=== PATIENT | male | born 1990 | race Two or more races ===

== ENCOUNTER 2023-02-11 11:30 | Outpatient (RCR) | payer OTHER, SELFPAY | END 2023-02-11 11:57 | disposition home or self-care (01) | LOC: HO.OT 11:30 | PROVIDERS: PCP Internal Medicine; Visit Provider Physician Assistant Surgical | DX: Z98.890 Other specified postprocedural states (principal) | CPT/HCPCS: 29130; 97035; 97110; 97140; 97166; 97530; 97760 ==

== ENCOUNTER 2023-04-13 14:02 | Outpatient (AMB) | payer OTHER, SELFPAY ==
--- NOTE | 2023-04-13 14:08 | A.OFFPC_ITS ---
Vital Signs 04/13/23 14:09 Height 5 ft 5 in Weight 117 lb BMI 19.5 BP 110/70 Blood Pressure Location Lt brachial Position Sitting Intake Visit Reasons: Annual Exam Intake Note: Patient here for an annual physical exam Protection Manager Required: No Accompanied by: Mother Allergies No Known Allergies Allergy (Verified 04/13/23 14:44) Medication List - Last Reconciled 04/13/23 by Cecilia Smalls MD buspirone 10 mg PO BID methylphenidate HCl 5 mg PO BID trazodone 50 mg PO BEDTIME Tobacco use date assessed: 04/13/23 Dental Screening Dental Screen Date: 04/13/23 Did you have a dental visit in the last 12 months?: Yes Did you have a dental problem in the last 6 months where you did not have access to dental care?: No Was dental information given to patient?: Patient has dentist HPI HPI Comments History of Present Illness Details This is a 32-year-old male that comes for his physical exam accompanied by his mother. No acute complaints. Has some moderate recurrent major depression follow by Psychiatry. [facility] Medical History (Updated 04/13/23 @ 14:50 by Cecilia Smalls MD) MEHDI (generalized anxiety disorder) Moderate recurrent major depression ADD (attention deficit disorder) Family History Father CVD (cardiovascular disease) Mother No problems noted. Maternal Grandmother Cancer Social History (Updated 04/13/23 @ 14:51 by Cecilia Smalls MD) Housing: Apartment Alcohol intake: current Alcohol intake frequency: holidays/special occasions only Alcohol type: wine Patient Tobacco Use Status: Never used Tobacco e-Cigarette/Vaping Use: Never Used Second Hand Smoke Exposure: No service: No Current occupational status: unemployed Cognitive needs: No Hearing needs: No Vision needs: Yes (Glasses.) Questionnaire PHQ-9 Over the last 2 weeks, how often have you been bothered by any of the following problems? 1. Little interest or pleasure in doing things: not at all 2. Feeling down, depressed, or hopeless: several days 3. Trouble falling or staying asleep, or sleeping too much: not at all 4. Feeling tired or having little energy: not at all 5. Poor appetite or overeating: nearly every day 6. Feeling bad about yourself - or that you are a failure or have let yourself or your family down: not at all 7. Trouble concentrating on things, such as reading the newspaper or watching television: not at all 8. Moving or speaking so slowly that other people could have noticed. Or the opposite - being so fidgety or restless that you have been moving around a lot more than usual: not at all 9. Thoughts that you would be better off or of hurting yourself in some way: not at all Total score: 4 Depression Screening Interpretation: Positive Depression Screening Follow-up: Community Mental Health Worker F/U Depression Screening Done: Yes 70243 - PHQ-9 Billing: Yes Source: Developed by Drs. Evans Smith, Traci Grissom, Irwin Carey and colleagues, with an educational yuriy from [employer]. Thrive Questionnaire Date Thrive assessed: 04/13/23 I am a: Patient What is your living situation today?: I have a steady place to live Within the past 12 months, did the food you bought not last and you didn't have the money to get more?: Never true Within the past 12 months, did you worry whether your food would run out before you got money to buy more?: Never true Do you have trouble paying for medicines?: No Do you have trouble getting transportation to medical appointments?: No Do you have trouble paying your heating and electricity bill?: No Do you have trouble taking care of your child, family member or friend?: No Do you have trouble with day-to-day activities such as bathing, preparing meals, shopping, managing finances, etc.?: No Are you currently unemployed and looking for a job?: No Are you interested in more education?: No Please select the resources that you would like help with: None Currently or been in a relationship where the following occur: no concerns reported AUDIT C Alcohol Use Questionnaire (AUDIT-C) 1. How often do you have a drink containing alcohol?: Never Total Score: 0 MEHDI-7 AMB Questionnaire MEHDI-7 Date MEHDI - 7 assessed: 04/13/23 Feeling nervous, anxious, or on edge: 0 = Not at all Not being able to stop or control worryin = Not at all Worrying too much about different things: 0 = Not at all Trouble relaxin = Not at all Being so restless that it is hard to sit still: 0 = Not at all Becoming easily annoyed or irritable: 0 = Not at all Feeling afraid as if something awful might happen: 0 = Not at all Total MEHDI-7 score (0-4 normal; 5-9 mild; 10-14 moderate; 15-21 severe): 0 Source: Developed by Drs. Evans Smith, Traci Grissom, Irwin Carey and colleagues, with an educational yuriy from [employer]. MEHDI-7 Assessment Billing MEHDI-7 Assessment Tool: MEHDI-7 Assessment 23229 Review of Systems Const All systems reviewed & are unremarkable except as noted in HPI and below Eyes Reports no additional complaints, Denies change in vision and Denies other visual disturbances Card Denies chest pain at rest, Denies chest pain with activity, Denies edema, Denies irregular heart rhythm, Denies claudication, Denies dyspnea, Denies dyspnea on exertion, Denies orthopnea, Denies paroxysmal nocturnal dyspnea and Denies slow heart rate Resp Denies cough, Denies dyspnea and Denies dyspnea on exertion GI Denies abdominal pain, Denies change in bowel habits, Denies excessive flatus, Denies nausea and Denies vomiting Denies urinary hesitancy, Denies urinary incontinence and Denies urinary urgency Musc Denies abnormal gait, Denies atrophy, Denies deformity and Denies limited range of motion Skin/Breast Denies bleeding lesions, Denies changing lesions and Denies rash Neuro Denies abnormal gait and Denies lack of coordination Physical exam (Primary Care) Vital Signs: Last Vital Signs BP 110/70 04/13/23 14:09 BMI result Body Mass Index 19.5 Tobacco/Smoking Status: Tobacco use Status Tobacco use date assessed 04/13/23 04/13/23 14:14 Patient Tobacco Use Status Never used Tobacco 04/13/23 14:51 e-Cigarette/Vaping Use Never Used 04/13/23 14:51 PHQ-9: PHQ-9 Score PHQ-9: Total score 4 04/13/23 14:49 Depression Screening Interpretation: Positive Depression Screening Follow-up: Community Mental Health Worker F/U Thrive Assessment: Date of Thrive Assessment Date Thrive assessed 04/13/23 04/13/23 14:14 Currently or been in a relationship where the following occur: no concerns reported Const Orientation/consciousness: patient oriented x3 HENMT Head: Yes normal to inspection, Yes normocephalic and Yes atraumatic Ears: external ears normal Eyes General: appearance normal, both eyes and all related structures Eyelids: Yes eyelids normal Conjunctivae: conjunctivae normal Neck Neck: Yes normal visual inspection and Yes supple Resp Effort & Inspection: normal respiratory effort Auscultation: clear to auscultation bilaterally Cardio Jugular venous distension: no JVD Rate: regular rate Rhythm: regular rhythm Heart sounds: S1 normal heart sound present and S2 normal heart sound present GI Inspection: Yes normal to inspection Palpation (GI): Soft to palpation and nontender Auscultation: normal bowel sounds Skin General skin exam: no rashes or lesions noted Neuro General: patient oriented x3 and no focal motor deficits Extrem General: Yes full ROM Psych Appearance: grossly normal Office Procedures Flu Questionnaire Does the patient have a severe egg allergy?: No Immunizations flu vacc [id number] 6mos up(PF) 60 mcg(15 mcgx4)/0.5 mL IM syringe Performing Provider: Cecilia Smalls MD Performing Location: [facility] Documented (not given) by: MANI Hoskins on 04/13/23 14:14 Reason Not Given: Patient Refused Assessment and Plan Assessment & Plan (1) Encounter for physical examination: Code(s): Z00.00 - Encounter for general adult medical examination without abnormal findings Plan: Repeat in a year (2) Moderate recurrent major depression: Code(s): F33.1 - Major depressive disorder, recurrent, moderate Plan: Continue trazodone. Follow-up with psychiatry. Orders: Orders Influenza [id number] Immunization Today Z23 - Encounter for immunization Coding Level of Care Code Est Pt Prev Care 18-39y(68654) Diagnoses Encounter for physical examination Z00.00 Moderate recurrent major depression F33.1 Additional Codes MEHDI-7 Assessment Billing - MEHDI-7 Assessment Tool: MEHDI-7 Assessment 10586 ([id number]) Time Spent (min) 30
[2023-04-13 14:09] VITALS: BP 110/70; BMI 19.5
== END 2023-04-13 14:56 | disposition home or self-care (01) ==
LOC: HO.HMGH 14:02
PROVIDERS: PCP Internal Medicine; Visit Provider Internal Medicine
DX: Z00.00 Encounter for general adult medical examination without abnormal findings (principal); F33.1 Major depressive disorder, recurrent, moderate
CPT/HCPCS: 99395

== ENCOUNTER 2023-09-30 10:00 | Outpatient (RCR) | payer OTHER, SELFPAY | END 2023-12-16 13:49 | disposition home or self-care (01) | LOC: HO.OT 10:00 | PROVIDERS: PCP Internal Medicine; Visit Provider Physician Assistant Surgical | DX: Z98.890 Other specified postprocedural states (principal) | CPT/HCPCS: 97110; 97140; 97166; 97760 ==

== ENCOUNTER 2024-04-18 10:04 | Outpatient (AMB) | payer OTHER, SELFPAY ==
--- NOTE | 2024-04-18 10:08 | MHC.PC.OV ---
Vital Signs 04/18/24 10:09 Height 5 ft 5 in Weight 118 lb BMI 19.6 BP 112/70 Blood Pressure Location Lt brachial Position Sitting Intake Visit Reasons: annual Intake Note: Patient here for an Annual Physical Exam Program Support Assistant Required: No Accompanied by: Mother Allergies No Known Allergies Allergy (Verified 04/18/24 10:26) Medication List - Last Reconciled 04/18/24 by Cecilia Smalls MD buspirone 10 mg PO BID methylphenidate HCl 5 mg PO BID trazodone 50 mg PO BEDTIME Tobacco use date assessed: 04/18/24 Dental Screening Dental Screen Date: 04/18/24 Did you have a dental visit in the last 12 months?: Yes Did you have a dental problem in the last 6 months where you did not have access to dental care?: No Was dental information given to patient?: Patient has dentist HPI HPI Comments History of Present Illness Details This is a 33-year-old male that comes for his physical exam accompanied by his mother. Has moderate major depression follow by Psychiatry. No chest pain or shortness on breath. Complains of onychomycosis and I will start him on terbinafine. He is aware labs were order and had to be done before starting terbinafine to check his liver enzymes. [facility] Medical History (Updated 04/18/24 @ 10:44 by Cecilia Smalls MD) MEHDI (generalized anxiety disorder) Moderate recurrent major depression ADD (attention deficit disorder) Surgical History (Updated 04/18/24 @ 10:32 by Cecilia Smalls MD) Fracture of left leg Facial fracture Family History Father CVD (cardiovascular disease) Mother No problems noted. Maternal Grandmother Cancer Social History Housing: Apartment Alcohol intake: current Alcohol intake frequency: holidays/special occasions only Alcohol type: wine Patient Tobacco Use Status: Never used Tobacco e-Cigarette/Vaping Use: Never Used Second Hand Smoke Exposure: No service: No Current occupational status: unemployed Cognitive needs: No Hearing needs: No Vision needs: Yes (Glasses.) Questionnaire PHQ-9 Over the last 2 weeks, how often have you been bothered by any of the following problems? 1. Little interest or pleasure in doing things: not at all 2. Feeling down, depressed, or hopeless: not at all 3. Trouble falling or staying asleep, or sleeping too much: not at all 4. Feeling tired or having little energy: nearly every day 5. Poor appetite or overeating: not at all 6. Feeling bad about yourself - or that you are a failure or have let yourself or your family down: not at all 7. Trouble concentrating on things, such as reading the newspaper or watching television: not at all 8. Moving or speaking so slowly that other people could have noticed. Or the opposite - being so fidgety or restless that you have been moving around a lot more than usual: not at all 9. Thoughts that you would be better off or of hurting yourself in some way: not at all Total score: 3 Depression Screening Interpretation: Positive Depression Screening Follow-up: Existing condition and Follow-up Visit Requested Depression Screening Done: Yes 59368 - PHQ-9 Billing: Yes Source: Developed by Drs. Evans Smith, Traci Grissom, Irwin Carey and colleagues, with an educational yuriy from [employer]. Thrive Questionnaire Date Thrive assessed: 04/18/24 I am a: Patient What is your living situation today?: I have a steady place to live Within the past 12 months, did the food you bought not last and you didn't have the money to get more?: Never true Within the past 12 months, did you worry whether your food would run out before you got money to buy more?: Never true Do you have trouble paying for medicines?: No Do you have trouble getting transportation to medical appointments?: No Do you have trouble paying your heating and electricity bill?: No Do you have trouble taking care of your child, family member or friend?: No Do you have trouble with day-to-day activities such as bathing, preparing meals, shopping, managing finances, etc.?: No Are you currently unemployed and looking for a job?: No Are you interested in more education?: No Please select the resources that you would like help with: None Currently or been in a relationship where the following occur: No concerns reported THRIVE Score: 0 AUDIT C Alcohol Use Questionnaire (AUDIT-C) 1. How often do you have a drink containing alcohol?: Never Total Score: 0 Score Reviewed/Action Taken: No MEHDI-7 AMB Questionnaire MEHDI-7 Date MEHDI - 7 assessed: 04/18/24 Feeling nervous, anxious, or on edge: 0 = Not at all Not being able to stop or control worryin = Not at all Worrying too much about different things: 0 = Not at all Trouble relaxin = Not at all Being so restless that it is hard to sit still: 0 = Not at all Becoming easily annoyed or irritable: 0 = Not at all Feeling afraid as if something awful might happen: 0 = Not at all Total MEHDI-7 score (0-4 normal; 5-9 mild; 10-14 moderate; 15-21 severe): 0 Source: Developed by Drs. Evans Smith, Traci Grissom, Irwin Carey and colleagues, with an educational yuriy from [employer]. MEHDI-7 Assessment Billing MEHDI-7 Assessment Tool: MEHDI-7 Assessment 12377 Review of Systems Const All systems reviewed & are unremarkable except as noted in HPI and below Card Denies chest pain at rest, Denies chest pain with activity, Denies edema, Denies irregular heart rhythm, Denies claudication, Denies dyspnea, Denies dyspnea on exertion, Denies orthopnea, Denies paroxysmal nocturnal dyspnea and Denies slow heart rate Resp Denies cough, Denies dyspnea and Denies dyspnea on exertion GI Denies abdominal pain, Denies change in bowel habits, Denies excessive flatus, Denies nausea and Denies vomiting Denies urinary hesitancy, Denies urinary incontinence and Denies urinary urgency Musc Denies atrophy, Denies deformity and Denies limited range of motion Skin/Breast Denies bleeding lesions, Denies changing lesions and Denies rash Physical exam (Primary Care) Vital Signs: Last Vital Signs BP 112/70 04/18/24 10:09 BMI result Body Mass Index 19.6 Tobacco/Smoking Status: Tobacco use Status Tobacco use date assessed 04/18/24 04/18/24 10:14 Patient Tobacco Use Status Never used Tobacco 04/18/24 10:14 e-Cigarette/Vaping Use Never Used 04/18/24 10:14 PHQ-9: PHQ-9 Score PHQ-9: Total score 3 04/18/24 10:48 Depression Screening Interpretation: Positive Depression Screening Follow-up: Existing condition and Follow-up Visit Requested Thrive Assessment: Date of Thrive Assessment Date Thrive assessed 04/18/24 04/18/24 10:14 Currently or been in a relationship where the following occur: No concerns reported [facility] Head: Yes normal to inspection, Yes normocephalic and Yes atraumatic Ears: external ears normal Eyes General: appearance normal, both eyes and all related structures Eyelids: Yes eyelids normal Conjunctivae: conjunctivae normal Neck Neck: Yes normal visual inspection and Yes supple Resp Effort & Inspection: normal respiratory effort Auscultation: clear to auscultation bilaterally Cardio Jugular venous distension: no JVD Rate: regular rate Rhythm: regular rhythm Heart sounds: S1 normal heart sound present and S2 normal heart sound present GI Inspection: Yes normal to inspection Palpation (GI): Soft to palpation and nontender Auscultation: normal bowel sounds Skin General skin exam: no rashes or lesions noted Neuro General: no focal motor deficits Extrem General: Yes full ROM Psych Appearance: grossly normal Office Procedures Flu Questionnaire Does the patient have a severe egg allergy?: No Does the patient have severe life threatening allergies?: No Does the patient have a fever or illness today?: No Has the patient ever had Guillain-Webster Syndrome?: No Has the patient ever had any past reaction to a flu shot?: No Immunizations Fluarix Triv [id number] (PF) 45 mcg (15 mcg x 3)/0.5 mL IM syringe Performing Provider: Cecilia Smalls MD [facility] Administered by: MANI Hoskins on 04/18/24 10:48 Dose Route Admin Location Dispensed Lot Number Expiration Date NDC Assistant Hairstylist 0.5 mL IM Right Deltoid 0.5 mL [id number] 01/08/25 [id number] [employer] VIS Given Date VIS Provided VIS Publication Date 04/18/24 Single Vaccine 21 Eligibility Eligibility Date Funding Source Not [facility] Eligible 04/18/24 Private Coding Level of Care Code Est Pt Level 3 (37976) Est Pt Prev Care 18-39y(56851) Diagnoses Encounter for physical examination Z00.00 Moderate recurrent major depression F33.1 Onychomycosis B35.1 Additional Codes MEHDI-7 Assessment Billing - MEHDI-7 Assessment Tool: MEHDI-7 Assessment 39644 ([id number]) Time Spent (min) 33 Assessment & Plan Assessment & Plan (1) Encounter for physical examination: Code(s): Z00.00 - Encounter for general adult medical examination without abnormal findings Category: Medical Plan: Repeat in a year. (2) Moderate recurrent major depression: Code(s): F33.1 - Major depressive disorder, recurrent, moderate Category: Medical Plan: Continue trazodone. Follow-up with psychiatry. (3) Onychomycosis: Code(s): B35.1 - Tinea unguium Category: Medical Plan: Start terbinafine. Orders: Orders Lipid Panel Today E78.5 - Hyperlipidemia, unspecified, Z00.00 - Encounter for general adult medical examination without abnormal findings Comprehensive [place]. Panel Fast Today Z00.00 - Encounter for general adult medical examination without abnormal findings Influenza [id number] Immunization Today Z23 - Encounter for immunization Medications: New terbinafine HCl 250 mg PO DAILY 90 tabs 0RF 90 days B35.1 - Tinea unguium
[2024-04-18 10:09] VITALS: BP 112/70; BMI 19.6
== END 2024-04-18 10:49 | disposition home or self-care (01) ==
PROVIDERS: PCP Internal Medicine; Visit Provider Internal Medicine
DX: Z00.00 Encounter for general adult medical examination without abnormal findings (principal); F33.1 Major depressive disorder, recurrent, moderate; B35.1 Tinea unguium; Z23 Encounter for immunization

== ENCOUNTER → 2024-04-18 10:04 | Outpatient (BNVA) | payer OTHER, SELFPAY | PROVIDERS: PCP Internal Medicine; Visit Provider Internal Medicine | DX: Z00.01 Encounter for general adult medical examination with abnormal findings (principal); Z23 Encounter for immunization; F33.1 Major depressive disorder, recurrent, moderate; B35.1 Tinea unguium; F41.1 Generalized anxiety disorder | CPT/HCPCS: 90471; 90656; 96127; 99212; 99395 ==

== ENCOUNTER 2024-04-24 11:01 | Outpatient (REF) | payer OTHER, SELFPAY ==
[2024-04-24 12:13] LABS: Alanine Aminotransferase 26 U/L (0-40); Albumin Level 4.6 g/dL (3.5-5.0); Alkaline Phosphatase 61 U/L (39-117); Aspartate Amino Transferase 31 U/L (5-37); Bilirubin Total 0.4 mg/dL (0.0-1.0); Blood Urea Nitrogen 8 mg/dL (9-16); Calcium 9.9 mg/dL (8.4-10.2); Chloride 106 mmol/L (96-108); Cholesterol 173 mg/dL (<200); Estimated Glomerular Filt Rate > 60; Glucose Fasting 87 mg/dL (60-99); HDL Cholesterol 59 mg/dL (>40); LDL Cholesterol Calculated 102 mg/dL (<100); Sodium 144 mmol/L (135-145); Total Protein 7.2 g/dL (6.5-8.0); Triglycerides 62 mg/dL (<150)
[2024-04-24 12:28] LABS: Anion Gap 13 (12-20); Carbon Dioxide 29 mmol/L (22-29)
== END 2024-04-24 11:02 | disposition home or self-care (01) ==
LOC: HO.LAB 11:01
PROVIDERS: PCP Internal Medicine; Visit Provider Internal Medicine
DX: Z00.00 Encounter for general adult medical examination without abnormal findings (principal); E78.5 Hyperlipidemia, unspecified
CPT/HCPCS: 36415; 80053; 80061

== ENCOUNTER 2025-04-24 12:34 | Outpatient (AMB) | payer OTHER, SELFPAY ==
--- NOTE | 2025-04-24 12:37 | MHC.PC.OV ---
Vital Signs 04/24/25 12:38 Height 5 ft 5 in Weight 118 lb BMI 19.6 BP 110/78 Blood Pressure Location Lt brachial Position Sitting Pulse 50 Pulse Source Pulse Oximeter Pulse Oximetry (%) 98 Oxygen Delivery Method Room Air Intake Visit Reasons: annual exam Svp [employer] Development Required: No Accompanied by: Self / Same As Patient Allergies No Known Allergies Allergy (Verified 04/24/25 12:53) Medication List - Last Reconciled 04/24/25 by Cecilia Smalls MD buspirone 10 mg PO BID methylphenidate HCl 5 mg PO BID terbinafine HCl 250 mg PO DAILY 90 days trazodone 50 mg PO BEDTIME Tobacco use date assessed: 04/24/25 Dental Screening Dental Screen Date: 04/24/25 Did you have a dental visit in the last 12 months?: Yes Did you have a dental problem in the last 6 months where you did not have access to dental care?: No Was dental information given to patient?: Patient has dentist HPI HPI Comments History of Present Illness Details The patient is a 34-year-old male presenting for a wellness visit and preventative care. The patient has a history of a facial fracture and a fracture of the left leg. He also reports dislocation of the second and third fingers, which affects his ability to grasp objects due to reduced strength. The patient experiences back pain, which is exacerbated by prolonged standing or sitting. He mentions that he cannot stand for more than an hour due to leg pain and needs to change positions frequently to alleviate back discomfort. Previous laboratory tests conducted last year showed normal results for cholesterol, glucose, renal, and liver function. The patient maintains a healthy lifestyle by attending the gym daily and consuming a diet rich in calories. [facility] Medical History (Updated 04/24/25 @ 13:06 by Cecilia Smalls MD) MEHDI (generalized anxiety disorder) Moderate recurrent major depression ADD (attention deficit disorder) Surgical History Fracture of left leg Facial fracture Family History Father CVD (cardiovascular disease) Mother No problems noted. Maternal Grandmother Cancer Social History Housing: Apartment Alcohol intake: current Alcohol intake frequency: holidays/special occasions only Alcohol type: wine Patient Tobacco Use Status: Never used Tobacco e-Cigarette/Vaping Use: Never Used Second Hand Smoke Exposure: No service: No Current occupational status: unemployed Cognitive needs: No Hearing needs: No Vision needs: Yes (Glasses.) Questionnaire PHQ-9 Over the last 2 weeks, how often have you been bothered by any of the following problems? 1. Little interest or pleasure in doing things: not at all 2. Feeling down, depressed, or hopeless: not at all 3. Trouble falling or staying asleep, or sleeping too much: not at all 4. Feeling tired or having little energy: not at all 5. Poor appetite or overeating: not at all 6. Feeling bad about yourself - or that you are a failure or have let yourself or your family down: not at all 7. Trouble concentrating on things, such as reading the newspaper or watching television: more than half the days 8. Moving or speaking so slowly that other people could have noticed. Or the opposite - being so fidgety or restless that you have been moving around a lot more than usual: not at all 9. Thoughts that you would be better off or of hurting yourself in some way: not at all Total score: 2 Depression Screening Interpretation: Negative Depression Screening Done: Yes 46221 - PHQ-9 Billing: Yes Source: Developed by Drs. Evans Smith, Traci Grissom, Irwin Carey and colleagues, with an educational yuriy from [employer]. Thrive Questionnaire Date Thrive assessed: 04/24/25 I am a: Patient What is your living situation today?: I have a steady place to live Within the past 12 months, did the food you bought not last and you didn't have the money to get more?: Never true Within the past 12 months, did you worry whether your food would run out before you got money to buy more?: Never true Do you have trouble paying for medicines?: No Do you have trouble getting transportation to medical appointments?: No Do you have trouble paying your heating and electricity bill?: No Do you have trouble taking care of your child, family member or friend?: No Do you have trouble with day-to-day activities such as bathing, preparing meals, shopping, managing finances, etc.?: No Are you currently unemployed and looking for a job?: Yes Are you interested in more education?: No Please select the resources that you would like help with: None Currently or been in a relationship where the following occur: No concerns reported THRIVE Score: 0 AUDIT C Alcohol Use Questionnaire (AUDIT-C) 1. How often do you have a drink containing alcohol?: Never 3. How often do you have six or more drinks on one occasion?: Never Total Score: 0 Score Reviewed/Action Taken: No MEHDI-7 AMB Questionnaire MEHDI-7 Date MEHDI - 7 assessed: 04/24/25 Feeling nervous, anxious, or on edge: 0 = Not at all Not being able to stop or control worryin = Not at all Worrying too much about different things: 0 = Not at all Trouble relaxin = Not at all Being so restless that it is hard to sit still: 0 = Not at all Becoming easily annoyed or irritable: 1 = Several days Feeling afraid as if something awful might happen: 0 = Not at all Total MEHDI-7 score (0-4 normal; 5-9 mild; 10-14 moderate; 15-21 severe): 1 Source: Developed by Drs. Evans Smith, Traci Grissom, Irwin Carey and colleagues, with an educational yuriy from [employer]. MEHDI-7 Assessment Billing MEHDI-7 Assessment Tool: MEHDI-7 Assessment 66463 Review of Systems Const All systems reviewed & are unremarkable except as noted in HPI and below Card Denies chest pain at rest, Denies chest pain with activity, Denies edema, Denies irregular heart rhythm, Denies claudication, Denies dyspnea, Denies dyspnea on exertion, Denies orthopnea, Denies paroxysmal nocturnal dyspnea and Denies slow heart rate Resp Denies cough, Denies dyspnea and Denies dyspnea on exertion Physical exam (Primary Care) Vital Signs: Last Vital Signs Pulse 50 04/24/25 12:38 BP 110/78 04/24/25 12:38 Pulse Ox 98 04/24/25 12:38 Oxygen Delivery Method Room Air 04/24/25 12:38 BMI result Body Mass Index 19.6 Tobacco/Smoking Status: Tobacco use Status Tobacco use date assessed 04/24/25 04/24/25 12:46 Patient Tobacco Use Status Never used Tobacco 04/24/25 12:46 e-Cigarette/Vaping Use Never Used 04/24/25 12:46 PHQ-9: PHQ-9 Score PHQ-9: Total score 2 04/24/25 12:56 Depression Screening Interpretation: Negative Thrive Assessment: Date of Thrive Assessment Date Thrive assessed 04/24/25 04/24/25 12:46 Currently or been in a relationship where the following occur: No concerns reported [facility] Head: Yes normal to inspection, Yes normocephalic and Yes atraumatic Ears: external ears normal Eyes General: appearance normal, both eyes and all related structures Eyelids: Yes eyelids normal Conjunctivae: conjunctivae normal Neck Neck: Yes normal visual inspection and Yes supple Resp Effort & Inspection: normal respiratory effort Auscultation: clear to auscultation bilaterally Cardio Jugular venous distension: no JVD Rate: regular rate Rhythm: regular rhythm Heart sounds: S1 normal heart sound present and S2 normal heart sound present GI Inspection: Yes normal to inspection Palpation (GI): Soft to palpation and nontender Auscultation: normal bowel sounds Skin General skin exam: no rashes or lesions noted Neuro General: no focal motor deficits Extrem General: Yes full ROM Psych Appearance: grossly normal Office Procedures Flu Questionnaire Does the patient have a severe egg allergy?: No Does the patient have severe life threatening allergies?: No Does the patient have a fever or illness today?: No Has the patient ever had Guillain-Wellman Syndrome?: No Has the patient ever had any past reaction to a flu shot?: No Immunizations Fluarix [id number] (PF) 45 mcg (15 mcg x 3)/0.5 mL IM syringe Performing Provider: Cecilia Smalls MD [facility] Administered by: MANI Beasley on 04/24/25 13:12 Dose Route Admin Location Dispensed Lot Number Expiration Date [facility] Ad Operations Associate 0.5 mL IM Right Deltoid 0.5 mL [id number] 01/08/26 50802-725-04 English Helper VIS Given Date VIS Provided VIS Publication Date 04/24/25 Single Vaccine 24 Eligibility Eligibility Date Funding Source Not [facility] Eligible 04/24/25 Private Coding Level of Care Code Est Pt Level 3 (56802) Est Pt Prev Care 18-39y(82123) Diagnoses Encounter for physical examination Z00.00 Moderate recurrent major depression F33.1 Chronic pain of left lower extremity M79.605; G89.29 Additional Codes PHQ-9 - 64085 - PHQ-9 Billing: Yes ([id number]) MEHDI-7 Assessment Billing - MEHDI-7 Assessment Tool: MEHDI-7 Assessment 26982 ([id number]) Time Spent (min) 33 Assessment & Plan Assessment & Plan (1) Encounter for physical examination: Code(s): Z00.00 - Encounter for general adult medical examination without abnormal findings Category: Medical (2) Moderate recurrent major depression: Code(s): F33.1 - Major depressive disorder, recurrent, moderate Category: Medical (3) Chronic pain of left lower extremity: Code(s): M79.605 - Pain in left leg; G89.29 - Other chronic pain Category: Medical Plan Plan 1.Physical exam The flu vaccination was discussed and planned as part of the patient's preventative care measures. 2. Back Pain The patient experiences back pain exacerbated by prolonged standing or sitting, requiring frequent position changes for relief. Orders: Orders Influenza [id number] Immunization Today Z23 - Encounter for immunization Referrals Pain Management Referral G89.29 - Other chronic pain, M79.605 - Pain in left leg Medications: New celecoxib 100 mg PO BID 60 caps 0RF 30 days
[2025-04-24 12:38] VITALS: BP 110/78; PULSE 50; O2SAT 98; BMI 19.6
--- OUTSIDE RECORDS SUMMARY | 2025-04-24 15:13 | XMS_ITS | Encounter Summary ---
Author Organization [facility] Address [address] [place] [phone] Phone Care Team Providers Care Filing And Polishing Supervisor Name Role Phone Liliana Winter MD Primary Care Provider Unava ilable Encounter Details Date Type Department Care Team (Late st Contact Info) Description 02/25/2017 Conversion Encounter [facility] - [address] [address] Social History Tobacco Use Types Packs/Day Years Used Date Smoking Tobacco: Never Assessed Sex and Gender Information Value Date Recorded Sex Assigned at Not on file Legal Sex Male 4:48 PM EDT Gender Identity Not on file Sexual Orientation Not on file documented as of this encounter Plan of Treatment Not on file documented as of this encounter Visit Diagnoses Not on filedocumented in this encounter Care Teams Filing And Polishing Supervisor Relationship Specialty Start Date End Date Liliana Winter MD PCP - General 02/19/17 documented as of this encounter
--- OUTSIDE RECORDS SUMMARY | 2025-04-24 15:14 | XMS_ITS | Clinical Summary ---
Author Organization [facility] Address [address] [place] [phone] Phone Care Team Providers Care Health Concierge Name Role Phone Liliana Winter MD Primary Care Provider Unava ilable Immunizations Immunization Administration Dates Next Due DTP 12/10/1993, 3,05/20/1992,03/19 DTaP 5 03/15/1997 Hep B, ped/adol 10/11/1992,03/19/1992,01/09/1992 Hib (PRP-T) 04/10/1993, 3,05/20/1992,03/19 Influenza Split 04/23/2010 MMR 01/31/1996,04/10/1993 Meningococcal Conj (Menactra) MCV4P 10/24/2007 OPV 03/15/1997, 4,05/20/1992,03/19 Td (adult) (MBL), 2 Lf tetan us toxoid, PF, adsorbed 04/29/2004 Tdap 04/23/2010 Family History Relation Name Status Comments Father Alive Father: Alive a nd well Mother Alive Mother: Depress ion, Alive and well Sister 1 Alive Sister: Alive a nd well, Alive and well, Depression Sister 2 Alive Sister: Alive a nd well, Alive and well, Depression Social History Tobacco Use Types Packs/Day Years Used Date Smoking Tobacco: Never Assessed Sex and Gender Information Value Date Recorded Sex Assigned at Not on file Legal Sex Male 4:48 PM EDT Gender Identity Not on file Sexual Orientation Not on file Last Filed Vital Signs Vital Sign Reading Time Taken Comments Blood Pressure 102/60 04/23/2010 12:00 AM EDT Pulse 96 04/23/2010 12:00 AM EDT Temperature 35.8 C (96.5 F) 04/23/2010 12:00 AM EDT Respiratory Rate - - Oxygen Saturation - - Inhaled Oxygen Concentration - - Weight 54 kg (119 lb) 04/23/2010 12:00 AM EDT Height 165.1 cm (5' 5 ) 04/23/2010 12:00 AM EDT Body Mass Index 19.8 04/23/2010 12:00 AM EDT Plan of Treatment Health Maintenance Due Date Last Done Comments Varicella Vaccines (1 of 2 - 13+ 2-dose series) 12/19/2004 HPV Vaccines (1 - 3-dose SCDM series) 12/19/2018 DTaP,Tdap,and Td Vaccines (7 - Td or Tdap) 04/23/2020 04/23/2010, 04/29/2004, 03/15/1997, Additional history exists Influenza Vaccines (#1) 2025 04/23/2010 COVID-19 Vaccine (2024- season) 2025 Hepatitis B Vaccines Completed 10/11/1992, 03/19/1992, 01/09/1992 HIB Vaccines Completed 04/10/1993, 07/12, 05/20/1992, Additional history exists MMR Vaccines Completed 01/31/1996, 04/10/1993 IPV Vaccines Completed 03/15/1997, 07/1993, 05/20/1992, Additional history exists Meningococcal Vaccine Aged Out 10/24/2007 No asha tesfaye eligible based on patient's age to complete this topic Hepatitis A Vaccines Aged Out No long er eligible based on patient's age to complete this topic Men B Vaccine Aged Out No longer elig ible based on patient's age to complete this topic Pneumococcal Vaccine Aged Out No long er eligible based on patient's age to complete this topic Care Teams Health Concierge Relationship Specialty Start Date End Date Liliana Winter MD PCP - General 02/19/17
== END 2025-04-24 13:14 | disposition home or self-care (01) ==
PROVIDERS: PCP Internal Medicine; Visit Provider Internal Medicine
DX: Z00.00 Encounter for general adult medical examination without abnormal findings (principal); F33.1 Major depressive disorder, recurrent, moderate; M79.605 Pain in left leg; G89.29 Other chronic pain; Z23 Encounter for immunization

== ENCOUNTER → 2025-04-24 12:34 | Outpatient (BNVA) | payer OTHER, SELFPAY | PROVIDERS: PCP Internal Medicine; Visit Provider Internal Medicine | DX: Z00.00 Encounter for general adult medical examination without abnormal findings (principal); M54.9 Dorsalgia, unspecified; F33.1 Major depressive disorder, recurrent, moderate; M79.605 Pain in left leg; G89.29 Other chronic pain; Z23 Encounter for immunization | CPT/HCPCS: 90471; 90656; 96127; 99212; 99395 ==

== ENCOUNTER 2025-05-15 13:53 | Outpatient (AMB) | payer OTHER, SELFPAY ==
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
[2025-05-15 14:07] VITALS: BP 101/50; PULSE 58; O2SAT 98; BMI 19.6
--- OUTSIDE RECORDS SUMMARY | 2025-05-15 16:59 | XMS_ITS | Clinical Summary ---
Author Organization [facility] Address [address] [place] [phone] Phone Care Team Providers Care Post Doctoral Researcher Name Role Phone Liliana Winter MD Primary [...] age to complete this topic Care Teams Post Doctoral Researcher Relationship Specialty Start Date End Date Liliana Winter MD PCP - General 02/19/17
--- OUTSIDE RECORDS SUMMARY | 2025-05-15 16:59 | XMS_ITS | Encounter Summary ---
Author Organization [facility] Address [address] [place] [phone] Phone Care Team Providers Care Rickshaw Driver Name Role Phone Liliana Winter MD Primary Care Provider Unava ilable Encounter Details Date Type Department Care Team (Late st Contact Info) Description 02/25/2017 Conversion Encounter [facility] - [address] [address] Social History Tobacco Use Types Packs/Day Years [...] on filedocumented in this encounter Care Teams Rickshaw Driver Relationship Specialty Start Date End Date Liliana Winter MD PCP - General 02/19/17 documented as of this encounter
== END 2025-05-15 14:28 | disposition home or self-care (01) ==
LOC: HO.PMC 13:54
PROVIDERS: PCP Internal Medicine; Visit Provider Nurse Practitioner Family
DX: M79.605 Pain in left leg (principal); G89.29 Other chronic pain; M54.50 Low back pain, unspecified; M25.562 Pain in left knee
CPT/HCPCS: 99204

== ENCOUNTER → 2025-05-15 13:53 | Outpatient (BNVA) | payer OTHER, SELFPAY | PROVIDERS: PCP Internal Medicine; Visit Provider Nurse Practitioner Family | DX: M79.605 Pain in left leg (principal); G89.29 Other chronic pain; M54.50 Low back pain, unspecified; M25.562 Pain in left knee | CPT/HCPCS: 99202 ==

== ENCOUNTER 2025-05-24 14:46 | Outpatient (REF) | payer OTHER, SELFPAY ==
--- NOTE | ~2025-05-24 | XR_ITS ---
EXAMINATION: XR LUMBOSACRAL SPINE WITH OBLIQUES CLINICAL INFORMATION: M54.50 - Low back pain, unspecified COMPARISON: None available. TECHNIQUE: AP oblique and lateral views FINDINGS: No acute cortical disruption or malalignment. No lytic or blastic lesions. Spina bifida occulta, S1, congenital.. XR/XR knee LT 3V IMPRESSION: No acute fracture or listhesis or gross abnormality. EXAMINATION: XR KNEE, LEFT CLINICAL INFORMATION: M 79.605. Pain in the left leg. COMPARISON: March 24, 2018 TECHNIQUE: AP lateral and sunrise views of the left knee. FINDINGS: No acute cortical disruption or malalignment. No gross suprapatellar bursa joint effusion. No lytic or blastic lesions. No soft tissue calcifications. No metallic or radiopaque foreign body. IMPRESSION: Normal x-ray left knee. Electronically signed by: Dustin Andujar MD 05/24/2025 03:30 PM EST
--- NOTE | ~2025-05-24 | XR_ITS ---
EXAMINATION: XR LUMBOSACRAL SPINE WITH OBLIQUES CLINICAL INFORMATION: M54.50 - Low back pain, unspecified COMPARISON: None available. TECHNIQUE: AP oblique and lateral views FINDINGS: No acute cortical disruption or malalignment. No lytic or blastic lesions. Spina bifida occulta, S1, congenital.. XR/XR lumbar spine 4V min IMPRESSION: No acute fracture or listhesis or gross abnormality. EXAMINATION: XR KNEE, LEFT CLINICAL INFORMATION: M 79.605. Pain in the left leg. COMPARISON: March 24, 2018 TECHNIQUE: AP lateral and sunrise views of the left knee. FINDINGS: No acute cortical disruption or malalignment. No gross suprapatellar bursa joint effusion. No lytic or blastic lesions. No soft tissue calcifications. No metallic or radiopaque foreign body. IMPRESSION: Normal x-ray left knee. Electronically signed by: Dustin Andujar MD 05/24/2025 03:30 PM [facility]
--- OUTSIDE RECORDS SUMMARY | 2025-05-24 18:04 | XMS_ITS | Encounter Summary ---
Author Organization [facility] Address [address] [place] [phone] Phone Care Team Providers Care Licensed Psychologist Manager Name Role Phone Liliana Winter MD Primary Care Provider Unava ilable Encounter Details Date Type Department Care Team (Late st Contact Info) Description 02/25/2017 Conversion Encounter [facility] - [address] [address] Social History Tobacco Use Types Packs/Day Years [...] on filedocumented in this encounter Care Teams Licensed Psychologist Manager Relationship Specialty Start Date End Date Liliana Winter MD PCP - General 02/19/17 documented as of this encounter
--- OUTSIDE RECORDS SUMMARY | 2025-05-24 18:04 | XMS_ITS | Clinical Summary ---
Author Organization [facility] Address [address] [place] [phone] Phone Care Team Providers Care Newspaper Or Periodical Editor Name Role Phone Liliana Winter MD Primary [...] age to complete this topic Care Teams Newspaper Or Periodical Editor Relationship Specialty Start Date End Date Liliana Winter MD PCP - General 02/19/17
== END 2025-05-24 14:47 | disposition home or self-care (01) ==
LOC: HO.XRAY 14:46
PROVIDERS: PCP Internal Medicine; Visit Provider Nurse Practitioner Family
DX: M54.50 Low back pain, unspecified (principal); M79.605 Pain in left leg; G89.29 Other chronic pain; M25.562 Pain in left knee
CPT/HCPCS: 72110; 73562

== ENCOUNTER → 2025-05-24 14:52 | Outpatient (BNV) | payer OTHER, SELFPAY | PROVIDERS: PCP Internal Medicine; Visit Provider Radiology Diagnostic Radiology | DX: M54.50 Low back pain, unspecified (principal); M79.605 Pain in left leg | CPT/HCPCS: 72110; 73562 ==